=== PATIENT | female | born 1995 | race Caucasian/White ===

== ENCOUNTER 2020-09-03 08:21 | Emergency (ER) | payer BC ==
[2020-09-03] MEDS ORDERED: NA CHLORIDE 0.9% 1,000 ML ONE (09:06)
[2020-09-03] MEDS ORDERED: ONDANSETRON 4 MG/2 ML VIAL ONE (09:06)
[2020-09-03 11:54] LABS: SARS-COV-2 RT PCR NEGATIVE (NEGATIVE)
--- NOTE | 2020-09-03 12:00 | ER ---
Nurse's Notes [facility] Name: Stacia Dallas Age: 25 yrs Sex: Female : 1995 Arrival Date: 09/03/2020 Time: 08:25 Bed 4 Private MD: Diagnosis: Vomiting, unspecified;Dehydration Presentation: 09/03 08:45 Chief complaint: Patient states: Reports eating stew that might have been bad after jl7 loosing power, started vomiting q20min at 0200 this morning, diarrhea x 1 and aching abdomen. Cleared by L\T\D prior to arrival in ED. Coronavirus screen: Client denies travel out of the [place] in the last 14 days. diarrhea, nausea, vomiting. Client presents with at least one sign or symptom that may indicate coronavirus-19. Standard/surgical mask placed on the client. Provider contacted for isolation considerations. Ebola Screen: No symptoms or risks identified at this time. Initial Sepsis Screen: Does the patient meet any 2 criteria? No. Patient's initial sepsis screen is negative. Does the patient have a suspected source of infection? No. Patient's initial sepsis screen is negative. Risk Assessment: Do you want to hurt yourself or someone else? Patient reports no desire to harm self or others. Onset of symptoms was September 03, 2020 at 02:00. Care prior to arrival: None. Transition of care: patient was not received from another setting of care. 08:45 Method Of Arrival: Wheelchair jl7 08:45 Acuity: ENRIQUE 3 jl7 Triage Assessment: 08:45 General: Appears in no apparent distress. uncomfortable, Behavior is calm, cooperative, jl7 appropriate for age. Pain: Complains of pain in abdomen diffusely Pain currently is 5 out of 10 on a pain scale. Quality of pain is described as aching. Neuro: Level of Consciousness is awake, alert, obeys commands, Oriented to person, place, time, situation. Cardiovascular: Patient's skin is warm and dry. Respiratory: Airway is patent. GI: Reports diarrhea, nausea, vomiting. Derm: Skin is pink, warm \T\ dry. Historical: - Allergies: 09:10 No Known Allergies; jl7 - Home Meds: 09:10 Synthroid 50 mcg Oral tab 1 tab once daily [Active]; jl7 - PMHx: 09:10 Hypothyroidism; jl7 - PSHx: 09:10 None; jl7 - Immunization history:: Adult Immunizations unknown. - Social history:: Smoking status: Patient denies any tobacco usage or history of. - Family history:: not pertinent. - Hospitalizations: : No recent hospitalization is reported. Screenin:00 Abuse screen: Denies threats or abuse. Denies injuries from another. Nutritional jl7 screening: No deficits noted. Tuberculosis screening: No symptoms or risk factors identified. Fall Risk IV access (20 points). Total Rivera Fall Scale indicates No Risk (0-24 pts). Assessment: 09:11 General: see triage assessment. jl7 10:00 Reassessment: Patient appears in no apparent distress at this time. Patient and/or jl7 family updated on plan of care and expected duration. Pain level reassessed. Patient is alert, oriented x 3, equal unlabored respirations, skin warm/dry/pink. Patient states feeling better. Patient states symptoms have improved. 10:30 Reassessment: Awaiting lab results. jl7 11:11 Reassessment: Pt provided with bottled water and latoya crackers. Denies nausea at this jl7 time. 12:00 Reassessment: Patient appears in no apparent distress at this time. Patient and/or jl7 family updated on plan of care and expected duration. Pain level reassessed. Patient is alert, oriented x 3, equal unlabored respirations, skin warm/dry/pink. Vital Signs: 08:45 BP 112 / 59; Pulse 107; Resp 17; Temp 98.7(O); Pulse Ox 96% on R/A; Weight 117.93 kg 7 (R); Height 5 ft. 9 in. (175.26 cm) (R); Pain 5/10; 09:13 BP 99 / 66; Pulse 118; Resp 19; Pulse Ox 98% ; jl7 09:30 BP 98 / 54; Pulse 100; Resp 17; Pulse Ox 100% ; jl7 10:00 BP 99 / 50; Pulse 91; Resp 15; Pulse Ox 100% ; jl7 11:11 BP 98 / 47; Pulse 110; Resp 17; Pulse Ox 100% ; jl7 12:00 BP 115 / 65; Pulse 101; Resp 15; Pulse Ox 100% ; jl7 08:45 Body Mass Index 38.39 (117.93 kg, 175.26 cm) jl7 ED Course: 08:25 Patient arrived in ED. ag5 08:33 Rashard Tovar MD is Attending Physician. rn 08:45 Arm band placed on right wrist. jl7 08:48 Juliette Blair, RN is Primary Nurse. jl7 08:50 Inserted saline lock: 22 gauge in right hand, using aseptic technique. jl7 08:57 COVID swab sent to lab. jl7 09:00 Patient has correct armband on for positive identification. Bed in low position. Call jl7 light in reach. Side rails up X 1. Pulse ox on. NIBP on. Door closed. Noise minimized. Lights dimmed. 09:09 Triage completed. jl7 10:43 Flu Sent. em1 12:15 No provider procedures requiring assistance completed. IV discontinued, intact, jl7 bleeding controlled, No redness/swelling at site. Pressure dressing applied. Administered Medications: 09:00 Drug: Zofran (Ondansetron) 4 mg Route: IVP; Site: right hand; jl7 09:30 Follow up: Response: No adverse reaction; Nausea is decreased jl7 09:00 Drug: NS 0.9% 1000 ml Route: IV; Rate: 1000 ml; Site: right hand; jl7 10:00 Follow up: Response: No adverse reaction; IV Status: Completed infusion; IV Intake: [facility] 1000ml Intake: 10:00 IV: 1000ml; Total: 1000ml. jl7 Outcome: 11:58 Discharge ordered by . rn 12:15 Discharged to home ambulatory. jl7 12:15 Condition: stable 12:15 Discharge instructions given to patient, Instructed on discharge instructions, follow up and referral plans. Demonstrated understanding of instructions, follow-up care. 12:28 Patient left the ED. jl7 Signatures: Rashard Tovar MD MD rn Martinez, Eric em1 Juliette Blair RN RN Skylar Lindo [facility]
--- NOTE | 2020-09-03 12:00 | EDPHYS ---
Physician Documentation [facility] Name: Stacia Dallas Age: 25 yrs Sex: Female : 1995 Arrival Date: 09/03/2020 Time: 08:25 Bed 4 Private MD: ED Physician Rashard Tovar HPI: 09/03 08:42 This 25 yrs old Female presents to ER via Unassigned with complaints of rn Nausea/Vomiting, 28 Wks Preg. 08:42 The patient presents to the emergency department with nausea, vomiting, diarrhea. rn Onset: The symptoms/episode began/occurred last night. Possible causes: bad food exposure, sick contacts. The symptoms are aggravated by nothing. The symptoms are alleviated by nothing. Associated signs and symptoms: Pertinent positives: diarrhea, nausea, vomiting, Pertinent negatives: abdominal pain, fever, GI bleeding. Severity of symptoms: At their worst the symptoms were mild in the emergency department the symptoms are unchanged. The patient has experienced a previous episode. The patient has not recently seen a physician. Reports 28 weeks , came in for nausea/vomiting/diarrhea, began last night, reports significant other with identical symptoms but for 2 days previous to her onset, no fever, no abd pain, just seen at L\T\D and baby evaluated, was fine. No vaginal discharge or drainage. No chronic abd problems. . Historical: - Allergies: 09:10 No Known Allergies; jl7 - Home Meds: 09:10 Synthroid 50 mcg Oral tab 1 tab once daily [Active]; jl7 - PMHx: 09:10 Hypothyroidism; jl7 - PSHx: 09:10 None; jl7 - Immunization history:: Adult Immunizations unknown. - Social history:: Smoking status: Patient denies any tobacco usage or history of. - Family history:: not pertinent. - Hospitalizations: : No recent hospitalization is reported. ROS: 08:42 Constitutional: Negative for fever, chills, and weight loss, Eyes: Negative for injury, rn pain, redness, and discharge, Neck: Negative for injury, pain, and swelling, Cardiovascular: Negative for chest pain, palpitations, and edema, Respiratory: Negative for shortness of breath, cough, wheezing, and pleuritic chest pain, Abdomen/GI: Negative for abdominal pain, and constipation, Back: Negative for injury and pain, : Negative for injury, bleeding, discharge, and swelling, MS/Extremity: Negative for injury and deformity, Skin: Negative for injury, rash, and discoloration, Neuro: Negative for headache, weakness, numbness, tingling, and seizure. Exam: 08:42 Constitutional: This is a well developed, well nourished patient who is awake, alert, rn and in no acute distress. Ambulatory from wheelchair to bed. Head/Face: Normocephalic, atraumatic. Eyes: Pupils equal round and reactive to light, extra-ocular motions intact. Lids and lashes normal. Conjunctiva and sclera are non-icteric and not injected. Cornea within normal limits. Periorbital areas with no swelling, redness, or edema. Cardiovascular: Tachycardic, regular Respiratory: No increased work of breathing, no retractions or nasal flaring. Abdomen/GI: soft, non-tender, neg hendrickson, no masses Skin: Warm, dry MS/ Extremity: Pulses equal, no cyanosis. Neuro: Awake and alert, GCS 15 Vital Signs: 08:45 BP 112 / 59; Pulse 107; Resp 17; Temp 98.7(O); Pulse Ox 96% on R/A; Weight 117.93 kg 7 (R); Height 5 ft. 9 in. (175.26 cm) (R); Pain 5/10; 09:13 BP 99 / 66; Pulse 118; Resp 19; Pulse Ox 98% ; jl7 09:30 BP 98 / 54; Pulse 100; Resp 17; Pulse Ox 100% ; 7 10:00 BP 99 / 50; Pulse 91; Resp 15; Pulse Ox 100% ; jl7 11:11 BP 98 / 47; Pulse 110; Resp 17; Pulse Ox 100% ; jl7 12:00 BP 115 / 65; Pulse 101; Resp 15; Pulse Ox 100% ; jl7 08:45 Body Mass Index 38.39 (117.93 kg, 175.26 cm) [facility] MDM: 08:33 Patient medically screened. rn 09:34 Differential diagnosis: viral gastroenteritis, gastroenteritis, food poisoning. Data rn reviewed: vital signs, nurses notes. Counseling: I had a detailed discussion with the patient and/or guardian regarding: the historical points, exam findings, and any diagnostic results supporting the discharge/admit diagnosis, the need for outpatient follow up, to return to the emergency department if symptoms worsen or persist or if there are any questions or concerns that arise at home. ED course: Pt feels much better, no emesis since arrival, laying comfortably, talking on phone. . 09/03 08:41 Order name: Flu rn 09/03 11:54 Order name: COVID-19/FLU A+B; Complete Time: 11:58 EDMS Administered Medications: 09:00 Drug: Zofran (Ondansetron) 4 mg Route: IVP; Site: right hand; 7 09:30 Follow up: Response: No adverse reaction; Nausea is decreased jl7 09:00 Drug: NS 0.9% 1000 ml Route: IV; Rate: 1000 ml; Site: right hand; jl7 10:00 Follow up: Response: No adverse reaction; IV Status: Completed infusion; IV Intake: jl7 1000ml Disposition: 09/03/20 11:58 Discharged to Home. Impression: Vomiting, unspecified, Dehydration. - Condition is Stable. - Discharge Instructions: Dehydration, Adult, Nausea and Vomiting, Adult. - Prescriptions for Zofran ODT 4 mg Oral tablet,disintegrating - place 1 tablet by TRANSLINGUAL route every 8 hours As needed; 15 tablet. - Medication Reconciliation Form, Thank You Letter, Antibiotic Education, Prescription Opioid Use form. - Follow up: Private Physician; When: As needed; Reason: Recheck today's complaints, Re-evaluation by your physician. - Problem is new. - Symptoms have improved. Signatures: Dispatcher [employer] EDNY Rashard Tovar MD MD rn Leal, Jahala, RN RN jl7 Corrections: (The following items were deleted from the chart) 10:28 08:41 CORONAVIRUS+MR.LAB.BRZ ordered. [facility] EDNY 10:29 08:41 Influenza Screen (A ordered. [facility] EDMS 12:28 11:58 09/03/2020 11:58 Discharged to Home. Impression: Vomiting, unspecified; jl7 Dehydration. Condition is Stable. Forms are Medication Reconciliation Form, Thank You Letter, Antibiotic Education, Prescription Opioid Use. Follow up: Private Physician; When: As needed; Reason: Recheck today's complaints, Re-evaluation by your physician. Problem is new. Symptoms have improved. rn
[2020-09-03 12:33] VITALS: TEMP 98.7
[2020-09-03 12:36] VITALS: O2SAT 100
[2020-09-03 12:39] VITALS: BP 115/65
== END 2020-09-03 12:28 | disposition home or self-care (01) ==
LOC: ER 08:21
DX: O99.282 Endocrine, nutritional and metabolic diseases complicating pregnancy, second trimester (principal); E86.0 Dehydration; E03.9 Hypothyroidism, unspecified; Z3A.28 28 weeks gestation of pregnancy; Z20.822 Contact with and (suspected) exposure to COVID-19
CPT/HCPCS: 96361; 0240U; 96374; 99284; J7030; J2405